=== PATIENT | female | born 1985 | race Two or more races ===

== ENCOUNTER 2017-03-13 02:48 | Emergency (ER) | payer OTHER ==
[2017-03-13 02:57] VITALS: BP 125/81
--- NOTE | 2017-03-13 03:16 | ER Document Report ---
ED General - General Chief Complaint: STD Exposure Stated Complaint: STD CHECK Time Seen by Provider: 03/13/17 03:07 TRAVEL OUTSIDE OF THE U.S. IN LAST 30 DAYS: No - HPI Notes: 31-year-old female with history of vasovagal syncope presents for "STD check". The male she has been with had noted that he was having some dysuria. She states last time this happened, he had trichomonas. They both were treated but this has been quite a few years ago. She is asymptomatic without abdominal pain fever vaginal discharge, dysuria hematuria or other problem. Denies - Related Data Allergies/Adverse Reactions: No Known Allergies Allergy (Unverified 11/18/10 12:59) Past Medical History - Social History Smoking Status: Never Smoker Family History: Reviewed & Not Pertinent Patient has suicidal ideation: No Patient has homicidal ideation: No - Past Medical History Cardiac Medical History: Denies: Hx Coronary Artery Disease, Hx Heart Attack, Hx Hypertension Pulmonary Medical History: Denies: Hx Asthma, Hx Bronchitis, Hx COPD, Hx Pneumonia Neurological Medical History: Denies: Hx Cerebrovascular Accident, Hx Seizures Renal/ Medical History: Denies: Hx Peritoneal Dialysis Musculoskeltal Medical History: Denies Hx Arthritis Past Surgical History: Denies: Hx Pacemaker Review of Systems - Review of Systems -: Yes All other systems reviewed and negative Physical Exam - Vital signs Vitals: Temp Pulse Resp BP Pulse Ox 97.9 F 70 16 125/81 100 03/13/17 02:54 03/13/17 02:54 03/13/17 02:54 03/13/17 02:54 03/13/17 02:54 Interpretation: Normal - Notes Notes: GENERAL: VS as per nursing doc. Well-appearing, well-nourished and in no acute distress. HEAD: Atraumatic EYES: Sclera anicteric, no conjunctival injection or discharge. ENT: Moist mucous membranes. NECK: Supple LUNGS: Breath sounds clear to auscultation bilaterally and equal. No wheezes rales or rhonchi. HEART: Regular rate and rhythm without murmurs. ABDOMEN: Soft, non-tender : Minimal white discharge. No friability. External genitalia normal. No cervical motion tenderness. BACK: No CVA tenderness. EXTREMITIES: Normal range of motion NEUROLOGICAL: Normal speech. Normal sensory and motor exams. No gross cerebellar abnormalities. PSYCH: Normal mood, normal affect. SKIN: Warm, dry. Course - Re-evaluation Re-evalutation: 03/13/17 03:29 Patient deferred to wait for laboratory studies obtained and will get follow-up on these. - Vital Signs Vital signs: Temp Pulse Resp BP Pulse Ox 97.9 F 70 16 125/81 100 03/13/17 02:54 03/13/17 02:54 03/13/17 02:54 03/13/17 02:54 03/13/17 02:54 Discharge - Discharge Clinical Impression: Concern about STD in female without diagnosis Condition: Good Disposition: HOME, SELF-CARE Additional Instructions: Follow-up on the vaginal swabs obtained today. Return for any problem or concern.
[2017-03-13 06:53] LABS: CHLAM PCR NOT DETECTED (NOT DETECT)
== END 2017-03-13 03:35 | disposition home or self-care (01) ==
LOC: ER 02:48
DX: Z11.3 Encounter for screening for infections with a predominantly sexual mode of transmission (principal)
CPT/HCPCS: 87210; 87491; 87591; 99283

== ENCOUNTER 2017-12-22 01:12 | Emergency (ER) | payer OTHER ==
--- NOTE | 2017-12-22 01:31 | ER Document Report ---
ED General - General TRAVEL OUTSIDE OF THE U.S. IN LAST 30 DAYS: No <AARTI GARCIA - Last Filed: 12/22/17 02:53> <DENISE LOMBARDI - Last Filed: 12/22/17 10:24> <MARGARITA GARCÍA - Last Filed: 12/22/17 11:49> - General Stated Complaint: IVC WITH PAPERS Time Seen by Provider: 12/22/17 01:16 Notes: Patient is a 32-year-old female presents to police custody with involuntary commitment paperwork due to suicidal threats. Story from the please officers at the recall because the patient was seen she want to commit suicide in the locked herself in the room with a gun. Patient does admit that she locked herself in the room with a gun but says again was already in the room and she did not place it there. Patient does not admit to being suicidal but says that she just wants to be left alone and does not want to talk to anybody. She is supposed be on medications for depression but says that she does not take them. Patient has tried to commit suicide in the past. She will not tell me any other medical problems that she has. She will not expand upon what happened tonight did not give me much information. She denies any recent illnesses. ( AARTI GARCIA) - Related Data Allergies/Adverse Reactions: No Known Allergies Allergy (Verified 12/22/17 08:42) Past Medical History - Social History Smoking Status: Unknown if Ever Smoked Frequency of alcohol use: unknown Drug Abuse: Other - unknown Family History: Reviewed & Not Pertinent - Past Medical History Cardiac Medical History: Denies: Hx Coronary Artery Disease, Hx Heart Attack, Hx Hypertension Pulmonary Medical History: Denies: Hx Asthma, Hx Bronchitis, Hx COPD, Hx Pneumonia Neurological Medical History: Denies: Hx Cerebrovascular Accident, Hx Seizures Renal/ Medical History: Denies: Hx Peritoneal Dialysis Musculoskeltal Medical History: Denies Hx Arthritis Past Surgical History: Denies: Hx Pacemaker - Immunizations Hx Diphtheria, Pertussis, Tetanus Vaccination: Yes <AARTI GARCIA - Last Filed: 12/22/17 02:53> Review of Systems <AARTI GARCIA - Last Filed: 12/22/17 02:53> <DENISE LOMBARDI - Last Filed: 12/22/17 10:24> <MARGARITA GARCÍA - Last Filed: 12/22/17 11:49> - Review of Systems Notes: My Normal Review Basic REVIEW OF SYSTEMS: CONSTITUTIONAL : Denies fever, chills, or sweats. Denies recent illness. EENT: Denies eye, ear, throat, or mouth pain or symptoms. Denies nasal or sinus congestion. CARDIOVASCULAR: Denies chest pain. RESPIRATORY: Denies cough, cold, or chest congestion. Denies shortness of breath, difficulty breathing, or wheezing. GASTROINTESTINAL: Denies abdominal pain. Denies nausea, vomiting, or diarrhea. Denies constipation. Last BM: GENITOURINARY: Denies difficulty urinating, painful urination, burning, frequency, or blood in urine. MUSCULOSKELETAL: Denies neck or back pain or joint pain or swelling. SKIN: Denies rash or skin lesions. NEUROLOGICAL: Denies altered mental status or loss of consciousness. Denies headache. Denies weakness or paralysis or loss of use of either side. Denies problems with gait or speech. Denies sensory or motor loss. PSYCHIATRIC: Depression. Apparent suicidal threats. ALL OTHER SYSTEMS REVIEWED AND NEGATIVE. (AARTI GARCIA) Physical Exam <AARTI GARCIA - Last Filed: 12/22/17 02:53> <DENISE LOMBARDI - Last Filed: 12/22/17 10:24> <MARGARITA GARCÍA - Last Filed: 12/22/17 11:49> - Vital signs Vitals: Temp Pulse Resp BP Pulse Ox 98.4 F 76 17 111/81 97 12/22/17 01:22 12/22/17 01:22 12/22/17 01:22 12/22/17 01:22 12/22/17 01:22 - Notes Notes: General Appearance: Well nourished, alert, cooperative, no acute distress, no obvious discomfort. Vitals: reviewed, See vital signs table. Eyes: PERRL, EOMI, Conjuctiva clear Mouth: No decreasd moisture Lungs: No wheezing, No rales, No rhonci, No accessory muscle use, good air exchange bilaterally. Heart: Normal rate, Regular rythm, No murmur, no rub Abdomen: Normal BS, soft, No rigidity, No abdominal tenderness, No guarding, no rebound, no abdominal masses, no organomegaly Extremities: strength 5/5 in all extremities, good pulses in all extremities, no swelling or tenderness in the extremities, no edema. Skin: warm, dry, appropriate color, no rash Neuro: speech clear, oriented x 3, normal affect, responds appropriately to questions. Psychiatric: Patient staring at the floor. She will not make any eye contact. She will not answer any detailed questions. (AARTI GARCIA) Course - Laboratory Result Diagrams: 12/22/17 02:12 12/22/17 02:12 <AARTI GARCIA - Last Filed: 12/22/17 02:53> - Laboratory Result Diagrams: 12/22/17 02:12 12/22/17 02:12 <DENISE LOMBARDI - Last Filed: 12/22/17 10:24> - Laboratory Result Diagrams: 12/22/17 02:12 12/22/17 02:12 <MARGARITA GARCÍA - Last Filed: 12/22/17 11:49> - Re-evaluation Re-evalutation: 12/22/17 02:53 Patient is now speaking much more to me. She does not want to change into the psychiatric count but agrees to have her blood drawn and does agreed to speak with psychiatry. She still is adamant that she did not express thoughts of suicide. She did show me change text messages between her and her where she does not specifically say she is suicidal however her comments in my opinion do imply that she was suggesting suicide. I did speak with the on the phone and he says that the patient did specifically tell him over the phone that she wanted to commit suicide. The patient says that she grabbed the gun and close off on the room. She said she close her self in room because she does want to be away that the gun she grabbed she grabbed because it was in her son's room and she did not want to be in the syndrome. I suspect the patient most likely did grab the gun and close off in the room as a gesture of suicide ideations being that it occurred during her argument with her . Her are currently going through separation. Patient does not want to change her clothes. She is otherwise being very cooperative. I will not make her change her closes I do not think having security guards hold her down and [place] her would be appropriate being that she is otherwise been very cooperative at this point. Patient does agree to blood drawn to see psychiatry this morning. Patient is on IVC paperwork. 12/22/17 02:57 (AARTI GARCIA) - Vital Signs Vital signs: Temp Pulse Resp BP Pulse Ox 97.9 F 80 14 118/75 100 12/22/17 08:32 12/22/17 08:32 12/22/17 08:32 12/22/17 08:32 12/22/17 08:32 - Laboratory Laboratory results interpreted by me: 12/22/17 12/22/17 02:12 03:53 Urine Ketones TRACE H Urine Blood SMALL H Salicylates < 1.0 L Acetaminophen < 10 L - EKG Interpretation by Me Additional EKG results interpreted by me: 12/22/17 02:24 EKG is reviewed and interpreted by me. EKG shows normal sinus rhythm with a rate of [address] segment elevation or depression. No ischemic T-wave inversions. WV interval, QRS duration, QTc intervals are within normal range. Old EKG for comparison is unavailable at this time. (AARTI GARCIA) Discharge <AARTI GARCIA - Last Filed: 12/22/17 02:53> <DENISE LOMBARDI - Last Filed: 12/22/17 10:24> <MARGARITA GARCÍA - Last Filed: 12/22/17 11:49> - Discharge Clinical Impression: Problem related to social environment, unspecified Condition: Stable Disposition: HOME, SELF-CARE Additional Instructions: DEPRESSION: Your evaluation reveals that you have mental depression. While symptoms may be vague, they often include disturbance of sleep, fatigue, loss of appetite , and general loss of interest in life. While depression may be a side effect of drugs, or a reaction to a major change in your life, many cases have no known cause. If depression is acute, and related to a major loss in your life, you can expect it to clear completely with time. If you have been depressed a long time , are prone to repeated bouts of depression or low mood, or have been thinking of suicide, get help. Depression can be treated with anti-depressant medication and counselling. Long-term depression will often take a few weeks to clear, even with appropriate medication. Follow-up care is important. SUICIDAL IDEATION: Suicidal ideation is a common medical term for thoughts about suicide, which may be as detailed as a formulated plan, without the suicidal act itself. Although most people who undergo suicidal ideation do not commit suicide, some go on to make suicide attempts. The range of suicidal ideation varies greatly from fleeting to detailed planning, role playing, and unsuccessful attempts. While thoughts about suicide are common, most people do not carry out serious actions to commit suicide. Based upon your evaluation and discussion with you, we do not believe you are currently at risk to act upon your thoughts of suicide. You have agreed to return to the Emergency Counsel[facility] It has been recommended that you seek professional counseling to assist you with the stresses that you are experiencing. Most people at some time in their lives experience personal problems with which they need help. Pride and feeling that one can't be helped keep a lot of people from the benefits of counseling. Follow-Up Care You presented to the Emergency Department due to concerns about suicidal ideation, and being under an involuntary commitment. While in the Emergency Department you received a mental health assessment, based on the assessment it was determined your symptoms can be managed by an outpatient therapist. We are recommending family counseling to address your concerns regarding the communication differences between you and your spouse. We recommend you follow up with [facility] your primary outpatient provider today 12/22/2017 as walk- in which you agreed to do. In addition, your spouse agreed to lock up the firearm in the home. Referrals: [facility] [Provider Group] - 12/22/17
[2017-12-22 02:22] LABS: ABSOLUTE BASOPHILS # (AUTO) 0.1 10^3/uL (0.0-0.2); ABSOLUTE LYMPHOCYTES (AUTO) 1.7 10^3/uL (0.5-4.7); ABSOLUTE MONOCYTES (AUTO) 0.4 10^3/uL (0.1-1.4); ABSOLUTE NEUT (AUTO) 4.4 10^3/uL (1.7-8.2); BASOPHILS % (AUTO) 0.8 % (0-2); EOSINOPHILS % (AUTO) 0.3 % (0-6); HEMATOCRIT 40.4 % (36.0-47.0); HEMOGLOBIN 13.3 g/dL (12.0-15.5); LYMPHOCYTES % (AUTO) 26.1 % (13-45); MEAN CORPUSCULAR HEMOGLOBIN 27.4 pg (27.0-33.4); MEAN CORPUSCULAR HGB CONC 32.8 g/dL (32.0-36.0); MEAN CORPUSCULAR VOLUME 84 fl (80-97); MONOCYTES % (AUTO) 6.5 % (3-13); PLATELET COUNT 370 10^3/uL (150-450); RED BLOOD COUNT 4.83 10^6/uL (3.72-5.28); RED CELL DISTRIBUTION WIDTH 13.3 % (11.5-14.0); SEGMENTED NEUTROPHILS % (AUTO) 66.3 % (42-78); TOTAL CELLS COUNTED % (AUTO) 100 %; WHITE BLOOD COUNT 6.6 10^3/uL (4.0-10.5)
[2017-12-22 02:32] LABS: ALANINE AMINOTRANSFERASE 30 U/L (9-52); ALBUMIN 4.4 g/dL (3.5-5.0); ALKALINE PHOSPHATASE 94 U/L (38-126); ANION GAP 15 (5-19); ASPARTATE AMINO TRANSFERASE 25 U/L (14-36); BILIRUBIN,DIRECT 0.4 mg/dL (0.0-0.4); BILIRUBIN,TOTAL 0.4 mg/dL (0.2-1.3); BLOOD UREA NITROGEN 14 mg/dL (7-20); CALCIUM 9.7 mg/dL (8.4-10.2); CARBON DIOXIDE 23 mmol/L (22-30); CHLORIDE 107 mmol/L (98-107); GLUCOSE 94 mg/dL (75-110); POTASSIUM 4.1 mmol/L (3.6-5.0); SODIUM 144.8 mmol/L (137-145); TOTAL PROTEIN 7.8 g/dL (6.3-8.2)
[2017-12-22 02:33] LABS: ACETAMINOPHEN < 10 ug/mL (10-30); ALCOHOL < 10 mg/dL (NONE DETECTED); SALICYLATE < 1.0 mg/dL (2.0-20.0)
[2017-12-22 04:26] LABS: APPEARANCE,URINE CLEAR; BILIRUBIN,URINE NEGATIVE (NEGATIVE); COLOR,URINE YELLOW; GLUCOSE, URINE NEGATIVE (NEGATIVE); KETONES,URINE TRACE mg/dL (NEGATIVE); LEUKOCYTE ESTERASE,URINE NEGATIVE (NEGATIVE); NITRITE,URINE NEGATIVE (NEGATIVE); PROTEIN,URINE NEGATIVE (NEGATIVE); URINE SPECIFIC GRAVITY 1.015; UROBILINOGEN,URINE NEGATIVE mg/dL (<2.0)
[2017-12-22 04:41] LABS: URINE AMPHETAMINES SCREEN NEGATIVE; URINE BARBITURATES SCREEN NEGATIVE; URINE BENZODIAZEPINES SCREEN NEGATIVE; URINE COCAINE SCREEN NEGATIVE; URINE MARIJUANA (THC) SCREEN NEGATIVE; URINE METHADONE SCREEN NEGATIVE; URINE PHENCYCLIDINE SCREEN NEGATIVE
--- NOTE | 2017-12-22 09:56 | EKG REPORT ---
SEVERITY:- NORMAL ECG - SINUS RHYTHM : Confirmed by: Yeni Aguillon MD 22-Dec-2017 09:55:36
--- NOTE | 2017-12-22 10:22 | PSYCHOLOGICAL NOTE ---
Psych Note - Psych Note Psych Note: Reason for consult: Alleged suicidal ideation/ filled out IVC paperwork Contact Permissions: Patient's Manuel Rogers [phone] Eval: 0800 Final Disposition 0915 Patient is a 32-year-old female. Patient reports her and her recently got a separation as they were for 14 years and have 4 children one that does not live in the home and 3 other who live in the home. Patient reports it all started when the patient and her began arguing ( 2 days ago) because he left a loaded gun with the safety off in their son's bedroom. Patient reports that when she tried to call, and text to question her regarding having the firearm where her son could access the gun he did not answer the question and just started talking about their daughter's summer camp. Patient reports she was really upset that the gun was there with the safety off and loaded so she stopped talking to her . Patient reports that her kept trying to talk to her the last two days and blaming her not talking on not taking medications. Patient reports her said " see this is why you need meds cause you are much easier to talk to". Patient reports she did not want to talk to him, it had nothing to do with medications. Patient reports yesterday while she was in her room he kept trying to come in so she put the dresser in front of it and said for him to leave her alone. Patient reports that when she refused to have a conversation with him he started to try to push down the door at which point she sent a text message to him showing why the door was not opening so he could leave her alone. Patient reports that he then called police officers and when the police got there she showed the text messages to the border police and also when she got to the hospital she showed these text messages to Dr. Tatum stating that she was asking him about the loaded gun due to it being in the son's room not because of what the was alleging happened. Patient reports she did not say anything about suicide. Patient reports that her has been wanting her to take prescription medications to and go to therapy but she states that she has not done that for 14 years, started a few months ago, and stopped so she feels she does not need them. Patient reports that she has been to the hospital for psych both times because her called the international trade analyst on her and had her IVC'd and once inpatient when she lived in [place]. Patient reports the first time was in [place] because it was depression and she voluntarily went. Patient reports the other 2 times was because she told her she was suicidal and took pills but it was not a true attempt ( per her report). Patient reports at this time she does not have any suicidal thoughts or feelings, denying SI/HI. Patient reports mental health has consent to speak with Manuel Rogers. Patient stated "I just want to go home I have work tomorrow". Patient reports she works at [employer]. Patient reports there was nothing wrong with her yesterday and there is nothing wrong with her now. Patient reports she will follow-up with [facility] as a walk-in today to discuss today's visit. Collateral information: Patient's Manuel Rogers Patient's reports he was the IVC petitioner. Patient's reports his locked herself in her room with the gun. Patient's reports it started when he was arguing with her the day before. Patient's reports they are currently with paperwork but the court stated she does not have to leave the home because she is living there. Patient's reports that she was supposed to be living in [place] and came back just as a guest so he was staying in his son's bedroom and she was staying in their bedroom. Patient's reports that the separation paperwork began March 2017. Patient's reports that the patient wanted to be here for their son's graduation, and to try to work it out. Patient's reports that she has been talking about the pain of the separation but he does not want to be with her nor work it out. Patient's reports [facility] and always "talks her way out of it". Patient's reports that [facility] diagnosed her with borderline personality disorder. Patient's reports that he did leave the gun loaded in their child's bedroom because last week someone tried to break and he has been sleeping with it. 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 Patient's reports last year the patient allegedly attempted to OD on meds and filmed live on Facebook and sent the video message to the son's phone who was age 12 however she knew that the had the son's phone in his possession but a DSS report was made and that is when they got involved. Patient's reports the patient was going to counseling and taking Celexa but then stopped doing both. Patient's reports that she barricaded herself in the room because they were arguing but does not know the true intent about it ( referencing her being in the room with his gun) . Patient's reports he filled out the IVC paperwork because she stated "I no longer want to live" and he believed she was suicidal. Diagnosis: V 62.9 (V 60.9) unspecified problem related to social environment V 61.8 (Z 63.8) high expressed emotional level within family At this time patient reports history of depression, patient's reports history of Borderline Personality Disorder. Impression/plan: Recommendation to rescind involuntary commitment due to patient not meeting criteria [place] GS 122C. Patient denied suicidal and homicidal ideation. Clinician observed patient is endorsing future-oriented thinking ( e.g. talking about her children and work). Clinician observed patient and patient's is currently going through a legal separation. Clinician observed patient's 's information conflicts with the patient's information regarding the recounting of the events. Patient's reported he could not provide the text message which he initially stated he allegedly had which contained suicidal gestures mentioned in the text. Per patient's it was said in phone conversation. Clinician observed patient's feels strongly regarding her diagnosis and treatment of borderline personality disorder, he expressed concerns about wanting her to get treatment and take medications however the patient declines taking medications at this time. Thus there is a high expressed emotional level within the family from the spouse toward the patient. Patient's agreed to lock up his firearm due to having small children in the home and to safety plan. Patient agreed to go to [facility] her primary outpatient therapist today as a walk-in to discuss today' s visit as she is an established patient there. Attending physician in agreement with plan and disposition. Consulted with Dr. Castillo regarding the management and care of patient.
--- NOTE | 2017-12-22 10:22 | ER Document Report ---
Doctor's Note Notes: 12/22/17 10:19 Rounds: Chart reviewed and patient interviewed. Patient is very interactive. Patient has a history of depression but no other mental illnesses. Says she continues to be depressed. Denies feeling suicidal. Says her accused her of being suicidal and that is why she is here. Vital signs are all normal. Lab studies were all normal. Patient appears to be medically stable for transfer or discharge. Current plan by [facility] is for patient to be discharged. Jerry Smith MD
[2017-12-22 12:21] VITALS: BP 127/86
== END 2017-12-22 12:33 | disposition home or self-care (01) ==
LOC: ER 01:12
DX: Z04.6 Encounter for general psychiatric examination, requested by authority (principal); Z63.5 Disruption of family by separation and divorce; F32.9 Major depressive disorder, single episode, unspecified; T43.226A Underdosing of selective serotonin reuptake inhibitors, initial encounter; T50.906A Underdosing of unspecified drugs, medicaments and biological substances, initial encounter; Z91.128 Patient's intentional underdosing of medication regimen for other reason; Z91.14 Patient's other noncompliance with medication regimen
CPT/HCPCS: 36415; 80053; 80307; 81001; 85025; 93005; 93010; 99285

== ENCOUNTER → 2018-09-23 | Outpatient (CLI) | payer OTHER ==
--- NOTE | 2018-09-23 11:37 | RADIOLOGY REPORT (SQ) ---
EXAM DESCRIPTION: CT ABD/PELVIS COMBO COMPLETED DATE/TIME: 09/23/2018 9:46 am REASON FOR STUDY: R31.9 HEMATURIA R31.9 HEMATURIA, UNSPECIFIED COMPARISON: None. TECHNIQUE: CT scan of the abdomen and pelvis performed with and without intravenous contrast, and wi thout oral contrast. Contrasted imaging performed helical scanning technique and dynamic intravenous contrast injection. Images reviewed with lung, soft tissue, and bone windows. Reconstructed coronal a nd sagittal MPR images reviewed. Delayed images for evaluation of the urinary system also acquired. A ll images stored on PACS. All CT scanners at this facility use dose modulation, iterative reconstruction, and/or weight based d osing when appropriate to reduce radiation dose to as low as reasonably achievable (ALARA). [facility]: Dose Right [facility]: CareDose [facility]: Dose Right [facility]: Teradose 4D [facility]: [place]ervault CONTRAST TYPE AND DOSE: contrast/concentration: Isovue 350.00 mg/ml; Total Contrast Delivered: 62.0 ml; Total Saline Delivered: 65.0 ml RENAL FUNCTION: GFR > 60. RADIATION DOSE: CT Rad equipment meets quality standard of care and radiation dose reduction techniq ues were employed. CTDIvol: 9.0 mGy. DLP: 1388 mGy-cm. . LIMITATIONS: None. FINDINGS: NON-CONTRASTED IMAGING: No significant renal or bladder calcifications. No other significa nt organ calcifications. POST-CONTRASTED IMAGING: LOWER CHEST: No significant findings. No nodules or infiltrates. LIVER: Subcentimeter low-density lesion right lobe too small to characterize. No biliary dilatation. SPLEEN: Normal size. No focal lesions. PANCREAS: No masses. No significant calcifications. No adjacent inflammation or peripancreatic fluid collections. Pancreatic duct not dilated. GALLBLADDER: No identified stones by CT criteria. No inflammatory changes to suggest cholecystitis. ADRENAL GLANDS: No significant masses or asymmetry. RIGHT KIDNEY AND URETER: No solid masses. No significant calcifications. No hydronephrosis or hyd roureter. LEFT KIDNEY AND URETER: No solid masses. No significant calcifications. No hydronephrosis or hydr oureter. AORTA AND VESSELS: No aneurysm. No dissection. Renal arteries, SMA, celiac without stenosis. RETROPERITONEUM: No retroperitoneal adenopathy, hemorrhage or masses. BOWEL AND PERITONEAL CAVITY: No masses or inflammatory changes. No free fluid or peritoneal masses. APPENDIX: Normal. PELVIS: Tubal ligation. Pelvic phleboliths. ABDOMINAL WALL: No masses. No hernias. BONES: No significant or acute findings. OTHER: No other significant finding. IMPRESSION: NO SIGNIFICANT OR ACUTE ABNORMALITY IN THE ABDOMEN OR PELVIS. TECHNICAL DOCUMENTATION: JOB ID: [id number] Quality ID # [id number]: Final reports with documentation of one or more dose reduction techniques (e.g., Au tomated exposure control, adjustment of the mA and/or kV according to patient size, use of iterative reconstruction technique) 2010 [employer]- All Rights Reserved Reading location - IP/workstation name: [email or web address]
== END ==
LOC: RAD 09:08
PROVIDERS: ATTEND Family Medicine
DX: R31.9 Hematuria, unspecified (principal)
CPT/HCPCS: 74178